=== PATIENT | female | born 1955 | race African-American/Black ===

== ENCOUNTER → 2016-10-31 | Outpatient (CLI) | payer OTHER ==
[~2016-10-31] MED LIST: ACETAMINOPHEN PO; ALBUTEROL17 GM INH; ALDACTONE PO; AMARYL2 MG PO; AMLODIPINE BESYL5 MG PO; ANALAPRIL PO; ASPIRIN PO; BACTRIM DS TABL1 TA1 PO; BENTYL10 M1 PO; BLOOD PRESSURE; CARVEDILOL25 MG PO; CATAPRES-TTS-20.2 MG EXT; CATAPRES0.1 MG PO; CIPRO PO; CLONIDINE; CLONIDINE PO; CLONIDINE1 EAC1 PO; COMBIVENT INH14.7 GM INH; DARVOCET-N 1001 TAB PO; DOXYCYCLINE150 MG PO; ENALAPRIL MALEA20 MG PO; FLEXERIL10 MG PO; HCTZ PO; HYDROCODON-ACE1 EACH PO; INDOCIN SR75 MG PO; INHALER; KEFLEX500 MG PO; KETOPROFEN PO; LEVAQUIN PO; LISINOPRIL; LISINOPRIL20 MG PO; MUCINEX DM1 TAB.SR . PO; NORCO 5/325 TAB1 TAB PO; NORVASC PO; PREDNISONE PO; PROAIR HFA8.5 GM INH; PYRIDIUM100 MG PO; QVAR7.3 GM INH; VIBRAMYCIN100 M1 PO; VOLTAREN50 MG PO; ZESTORETIC 20/21 TAB PO; [UNRECOGNIZED DRUG - OTHER]
--- NOTE | ~2016-10-31 | US128 ---
[id number] [facility] [address] [place], [place] [address] [id number] O MR#: [id number] Acc #: [id number] NAME: ROSA ISELA RADER : 1955 SEX: F STUDY DATE/TIME: 10/31/2016 12:55 UNIT: [facility] ROOM: STUDY DESCRIPTION: Thyroid Attending Physician: Yolis Baptiste A.P.R.N. Referring Physician: Yolis Baptiste A.P.R.N. Ordering Physician: Yolis Baptiste A.P.R.N. Primary Care Physician: Yolis Baptiste A.P.R.N. MEDICAL IMAGING REPORT This report is preliminary unless electronic signature is present EXAM Thyroid ultrasound, 10/31/2016 HISTORY Multinodular quarter. Patient states "feels like throat is closing." History of thyroid surgery. COMPARISON Thyroid ultrasound, 04/18/2013 FINDINGS The isthmus measures approximately 10.0 mm thickness. The right thyroid lobe measures 3.9 x 5.8 x 3.7 cm. The left thyroid lobe measures approximately 3.4 x 5.9 x 3.6 cm. There is a dominant solid nodule within hypoechoic halo occupying the right ygt-cm-wokbd thyroid pole. This nodule measures approximately 3.4 x 3.9 x 3.2 cm. On the previous study, it measured to 2.9 x 3.6 x 2.6 cm on 04/18/2013 and measures slightly larger on the current exam. It does not appear hypervascular and does not appear to contain suspicious microcalcifications. A dominant solid nodule is seen within the left gre-mu-zyzcw thyroid pole. This nodule measures 4.2 x 3.3 x 4.3 cm. On the previous study, this nodule, when measured in a comparable fashion, was 4.3 x 2.9 x 4.4 cm and is not thought to be significantly changed. It does not contain suspicious microcalcification and does not appear hypervascular on color Doppler imaging. IMPRESSION Heterogeneous enlargement of both thyroid lobes and thyroid isthmus, similar to prior exam. Single solid nodule occupying the right xqn-qu-zugjf thyroid pole measures very slightly larger than on the 2013 examination. The left fay-kw-fkcpf thyroid solid nodule appears relatively stable in size. No definite new thyroid nodules are seen. Dictated by... Juliana Baird M.D. THIS IS AN ELECTRONICALLY VERIFIED REPORT Juliana Baird M.D. at 11/02/2016 8:31 AM Nathan TD: 10/31/2016 17:32 JOB #: [id number] MEDICAL IMAGING REPORT Page 1 of 1 COPY
== END | disposition home or self-care (01) ==
LOC: CWCC 12:12
DX: E04.0 Nontoxic diffuse goiter (principal); I10 Essential (primary) hypertension; R10.9 Unspecified abdominal pain; Z79.899 Other long term (current) drug therapy; R51 Headache; M16.0 Bilateral primary osteoarthritis of hip; E66.01 Morbid (severe) obesity due to excess calories; Z68.38 Body mass index [BMI] 38.0-38.9, adult; M79.672 Pain in left foot; R26.0 Ataxic gait; Z88.8 Allergy status to other drugs, medicaments and biological substances
CPT/HCPCS: 76536

== ENCOUNTER 2017-01-27 10:56 | Emergency (ER) | payer OTHER ==
[~2017-01-27 10:56] MED LIST changes: -LISINOPRIL
[2017-01-27] MEDS ORDERED: LISINOPRIL (11:08)
[2017-01-27] MEDS ORDERED: NORVASC PO (11:08)
[2017-01-27 11:34] LABS: URINE APPEARANCE CLEAR; URINE BILIRUBIN NEG (NEG); URINE COLOR YELLOW; URINE GLUCOSE NEG (NORM); URINE KETONE NEG (NEG); URINE LEUKOCYTE ESTERASE NEG (NEG); URINE NITRATE NEG (NEG); URINE PROTEIN NEG (NEG); URINE SOURCE CLEAN CATCH; URINE SPECIFIC GRAVITY 1.015 (1.003-1.035); URINE UROBILINOGEN 0.2 MG/DL (NORM)
[2017-01-27 11:41] LABS: MICRO INDICATED? NO; URINE BLOOD NEG (NEG)
== END 2017-01-27 12:32 | disposition home or self-care (01) ==
LOC: SED 10:56
PROVIDERS: Emergency Medicine
DX: R30.0 Dysuria (principal); R10.9 Unspecified abdominal pain; Z79.899 Other long term (current) drug therapy
CPT/HCPCS: 81003; 99283

== ENCOUNTER → 2017-03-06 | Outpatient (CLI) | payer OTHER ==
[~2017-03-06] MED LIST changes: +LISINOPRIL
[2017-03-06 15:51] LABS: BUN/CREATININE RATIO 17.77; CALCIUM SERUM 9.3 mg/dL (8.4-10.2); CREATININE SERUM 0.9 mg/dL (0.6-1.4); GLOM FILT RATE Estimated 80.6 mL/min (>60); POTASSIUM 3.7 mmol/L (3.5-5.1)
== END | disposition home or self-care (01) ==
LOC: SLAB 15:06
PROVIDERS: Internal Medicine Interventional Cardiology
DX: Z00.00 Encounter for general adult medical examination without abnormal findings (principal); I10 Essential (primary) hypertension
CPT/HCPCS: 36415; 80048; 80061